=== PATIENT | male | born 1970 ===

== ENCOUNTER 2021-11-23 08:36 | Day surgery (SDC) | payer OTHER ==
--- NOTE | 2021-11-23 07:49 | HP ---
DATE OF SURGERY: 11/23/2021 HISTORY OF PRESENT ILLNESS: The patient is a 51-year-old in need of screening colonoscopy. PAST MEDICAL HISTORY: He denies any chronic illnesses. MEDICATIONS: None on a regular basis. ALLERGIES: NKDA. REVIEW OF SYSTEMS: As listed per the patient assessment. PHYSICAL EXAMINATION: GENERAL: No acute distress. HEENT: Sclerae nonicteric. NECK: No JVD. CHEST: Equal excursion. CVS: Regular rate and rhythm. ABDOMEN: Soft. No peritoneal signs. EXTREMITIES: No edema. NEURO: Alert. RECTAL: Deferred timed to endoscopy exam. IMPRESSION: Need for screening colonoscopy. I feel the patient is a candidate. General risk of bleeding or infection, small risk of bowel injury or perforation, risk of sedation or bowel prep but not limited to, consent obtained. Will proceed with screening colonoscopy.
[~2021-11-23 08:36] MED LIST: Lactated Ringers 1,000 ML IV SCH
[2021-11-23] MEDS ORDERED: Lactated Ringers 1,000 ML IV ONE (08:52)
[2021-11-23] MEDS ORDERED: DIPRIVAN 200 MG/20 ML IV ONE ×2 (10:26→10:49)
[2021-11-23] MEDS ORDERED: Versed 2 MG/2 ML Injection ONE (10:26)
[2021-11-23 11:55] VITALS: BP 119/73; PULSE 75; O2SAT 99
--- NOTE | 2021-11-24 09:31 | OP ---
SURGERY DATE/TIME: 11/23/2021 1037 PREOPERATIVE DIAGNOSIS: Need for screening colonoscopy. POSTOPERATIVE DIAGNOSES: 1) Small early polyps versus hyperplastic lesions x3 sigmoid colon and rectum x1. 2) Very small diverticula. 3) Small tortuous colon. 4) ASA Class II. 5) Withdrawal time 12 minutes. 6) Prep overall fair. PROCEDURES: 1) Colonoscopy to cecum. 2) Hot biopsy polypectomy small early polyps versus hyperplastic lesions x3 sigmoid colon and rectum x1. SURGEON: Dr. Maxime Flores. ANESTHESIA: MAC. ESTIMATED BLOOD LOSS: Minimal. INDICATIONS: As noted above. Risks and benefits explained in detail but not limited to and consent obtained. DESCRIPTION OF PROCEDURE AND FINDINGS: The patient is taken to the endoscopy room. MAC anesthesia induced. After official time out and no disagreement with planned procedure, digital rectal exam did not reveal any rectal masses. Video colonoscope inserted and passed up through the somewhat tortuous sigmoid, descending colon. It took some time but slowly the scope was able to be navigated down the transverse colon, ascending colon. With the external pressure the scope was able to be passed to the cecum. Appendiceal orifice and valve were well visualized and photo documented. ASA Class III. Prep overall was fair. There was a little bit of liquidy stool throughout the colon just slightly limiting the exam for very small lesions. The scope is then carefully withdrawn over the next 12 minutes. There was a little small diverticula in the right colon. Otherwise the scope slowly and carefully withdrawn. There were no signs of any large polyps, masses or obstructing lesion. Back in the sigmoid colon and rectum, there was 3 in the sigmoid and additional one in the rectum. Small early polyps versus hyperplastic lesions removed with hot biopsy forceps with brief bursts of cautery. Good hemostasis noted. Otherwise no signs of any large polyps, masses or obstructing lesions. I will call them with the results of the findings in the next week or so when they are available.
== END 2021-11-23 12:10 | disposition home or self-care (01) ==
LOC: SDC 08:36
PROVIDERS: ATTEND Surgery
DX: Z12.11 Encounter for screening for malignant neoplasm of colon (principal); K63.5 Polyp of colon; K62.1 Rectal polyp; K57.30 Diverticulosis of large intestine without perforation or abscess without bleeding
CPT/HCPCS: J2250; J2704